=== PATIENT | female | born 1995 | race Caucasian/White ===

== ENCOUNTER 2020-05-08 13:41 | Emergency (ER) | payer OTHER ==
[~2020-05-08] VITALS: Ht 170.2 cm; Wt 72.6 kg
[2020-05-08 14:24] VITALS: Ht 170.2 cm; Wt 72.6 kg
[2020-05-08 15:35] VITALS: BP 113/71
== END 2020-05-08 15:35 | disposition home or self-care (01) ==
LOC: ED 13:41
DX: M25.562 Pain in left knee (principal); F12.20 Cannabis dependence, uncomplicated; X50.9XXA Other and unspecified overexertion or strenuous movements or postures, initial encounter; Y93.89 Activity, other specified; Y92.89 Other specified places as the place of occurrence of the external cause; Y99.8 Other external cause status
CPT/HCPCS: Q0092